=== PATIENT | male | born 1975 ===

== ENCOUNTER → 2024-10-24 08:30 | Outpatient (CLI) | payer OTHER ==
[2024-10-24 09:34] LABS: URINE APPEARANCE Clear; URINE BILIRRUBIN Negative (NEGATIVE); URINE BLOOD Negative; URINE COLOR Yellow; URINE GLUCOSE Negative (NEGATIVE); URINE KETONE Negative (NEGATIVE); URINE LEUKOCYTE Negative; URINE NITRATE Negative; URINE PROTEIN Negative (NEGATIVE); URINE UROBILINOGEN 0.2 E.U./dl
[2024-10-24 09:36] LABS: URINE BACTERIA 14.4 uL (0.0-1933); URINE EPITHELIAL CELLS 2.1 uL (0.0-38.8); URINE RBC 2.9 uL (0.0-20.8); URINE WBC 9.6 uL (0.0-23.2)
[2024-10-24 09:40] LABS: BASO % 0.8 % (0.1-1.2); EOS # 0.36 (0.04-0.54); EOS % 6.0 % (0.7-7.0); LYMPH # 1.49 (1.18-3.74); LYMPH % 25.0 % (19.3-53.1); MEAN PLATELET VOLUME 9.80 fl (9.4-12.4); MONO # 0.60 (0.24-0.82); MONO % 10.1 % (4.7-12.5); NEUT # 3.42 (1.56-6.13); NEUT % 57.4 % (34.0-71.1); RED CELL DISTRIBUTION WIDTH 14.3 % (11.6-14.4)
[2024-10-24 09:41] LABS: URINE CAST 0.14 uL (0.0-1.40)
[2024-10-24 10:31] LABS: BUN CREA RATIO 17.0 (7.0-25.0); CHOL HDL RATIO 2.5 (0-5.0); CREATININE SERUM 1.13 mg/dL (0.70-1.30); GFR 68.41; GLUCOSE FASTING 96.0 mg/dL (65-100); HDL 58.0 mg/dl (40-60); LDL 65.0 mg/dl (0-130); OSMOLALITY SERUM 283.0 MOSM/KG (275-295); TSH 1.32 uIU/mL (0.358-3.74); VLDL 21.0 (0-39)
== END | disposition home or self-care (01) ==
LOC: LAB 08:30
DX: D50.9 Iron deficiency anemia, unspecified (principal); Z13.29 Encounter for screening for other suspected endocrine disorder; R79.9 Abnormal finding of blood chemistry, unspecified; R94.6 Abnormal results of thyroid function studies; Z13.228 Encounter for screening for other metabolic disorders; Z13.1 Encounter for screening for diabetes mellitus; Z13.220 Encounter for screening for lipoid disorders; E78.5 Hyperlipidemia, unspecified; N39.0 Urinary tract infection, site not specified; R73.09 Other abnormal glucose